=== PATIENT | female | born 1960 | race Caucasian/White ===

== ENCOUNTER 2023-05-10 12:39 | Emergency (ER) | payer MEDICARE ==
[~2023-05-10] VITALS: Ht 170.2 cm; Wt 70.0 kg
[2023-05-10 12:45] VITALS: PULSE 59; O2SAT 95
[2023-05-10 13:15] VITALS: TEMP 98.4
[2023-05-10] MEDS: LIDOCAINE 5% PATCH TOP SCH ×2 (13:15→13:56)
[2023-05-10] MEDS ORDERED: ACETAMINOPHEN 325MG TABLET PO ONE (13:15)
[2023-05-10 13:56] VITALS: BP 117/85; RESP 18
[2023-05-10] MEDS ORDERED: CYCL10TA21 MT (14:05)
== END 2023-05-10 16:06 | disposition home or self-care (01) ==
LOC: ER 12:39
DX: S39.92XA Unspecified injury of lower back, initial encounter (principal); G89.11 Acute pain due to trauma; E78.00 Pure hypercholesterolemia, unspecified; Z98.890 Other specified postprocedural states; V99.XXXA Unspecified transport accident, initial encounter; Y93.89 Activity, other specified; Y92.89 Other specified places as the place of occurrence of the external cause; Y99.8 Other external cause status
CPT/HCPCS: 99283